=== PATIENT | female | born 1970 | race Caucasian/White ===

== ENCOUNTER 2017-06-07 16:19 | Emergency (ER) | payer OTHER ==
[2017-06-07 16:29] VITALS: TEMP 97.7
--- NOTE | 2017-06-07 16:56 | EDPHY ---
H & P Stated Complaint: lifting patient pulled back Source: Patient Exam Limitations: No limitations - Personal History LMP (Females 10-55): Post Menopausal Current Tetanus/Diphtheria Vaccine: Unsure - Medical/Surgical History Hx Asthma: No Hx Chronic Respiratory Disease: No Hx Diabetes: No Hx Cardiac Disease: No Hx Renal Disease: No Hx Cirrhosis: No Hx Alcoholism: No Hx HIV/AIDS: No Hx Splenectomy or Spleen Trauma: No Other PMH: migraine/breast cancer - Social History Smoking Status: Never smoked Time Seen by Provider: 06/07/17 16:56 HPI/ROS: HPI: This is a 46-year-old female who presents with Chief Complaint: lifting patient pulled back Location: Mid and lower back Quality: Pain Duration: 1-3 hours Signs and Symptoms: No bleeding, + radiation from mid to lower back down right outer buttock, no numbness, no weakness, no tingling, no incontinence, no decreased range of motion, no dysuria Timing: Gradual onset Severity: Moderate to severe Context: Patient works as a nurse at [employer] and around 130 p.m. was assisting of fellow employee to lift obese patient. The patient was leaned up against the bed and balancing her stay self on her stump. Another nurse was there trying to lift the obese patient onto the bed and prevent her from falling. Unfortunately, patient bent over and lifted quite a considerable amount of weight up onto the bed. She had gradual onset of mid bandlike across the thoracic region aching pain that over the past 1-3 hours has radiates down into the right lower back, right hip, and right leg. Denies incontinence, numbness, tingling, dysuria. She has a history of cervical degenerative disc disease as well as thoracic outlet syndrome. Modifying Factors: Took ibuprofen approximately 2 hours prior to arrival Comment: ROS: Constitutional: No fever, no chills, no weight loss Eyes: No blurred vision Respiratory: No shortness of breath, no cough Cardiovascular: No chest pain Gastrointestinal: No nausea, no vomiting no diarrhea Genitourinary: No dysuria Extremities: No myalgias Neurologic: No weakness, no numbness Skin: No rashes Hematologic: No bruising, no bleeding MEDICAL/SURGICAL/SOCIAL HISTORY: Medical history: migraine/breast cancer Surgical history: Bone graft and clavicle repair as a child Social history: Employee of [employer] CONSTITUTIONAL: Well-developed well-nourished pleasant adult white female, awake and alert, no obvious distress HEENT: Atraumatic and normocephalic, PERRL, EOMI. Tympanic membranes clear. Oropharynx clear, no exudate and moist pink mucosa. Airway patent. No lymphadenopathy. No meningismus. Cardiovascular: Normal S1/S2, regular rate, regular rhythm, without murmur rub or gallop. PULMONARY/CHEST: Symmetrical and nontender. Clear to auscultation bilaterally. Good air movement. No accessory muscle usage. ABDOMEN: Soft, nondistended, nontender, no rebound, no guarding, no peritoneal signs, no masses or organomegaly. No CVAT. EXTREMITIES: 2/2 pulses, no deformities, no clubbing, no cyanosis or edema. BACK: Mild reproducible bilateral paraspinous muscle tenderness in the thoracic and lumbar regions. No paraspinous spasms appreciated. No midline tenderness/deformity. Mild pain with right straight leg raise. Flexion/ extension/rotation intact with mild discomfort noted. Able to walk on heels and toes without difficulty. Light touch sensation intact. Bilateral hips have full range of motion and no greater trochanteric reproducible tenderness. NEUROLOGICAL: no focal neuro deficits. GCS 15. SKIN: Warm and dry, no erythema. no rash. Good capillary refill. (Cait Cruz) Constitutional: Initial Vital Signs Temperature (C) 36.5 C 06/07/17 16:26 Heart Rate 75 06/07/17 16:26 Respiratory Rate 16 06/07/17 16:26 Blood Pressure 143/90 H 06/07/17 16:26 O2 Sat (%) 96 06/07/17 16:26 O2 Delivery Mode Room Air Allergies/Adverse Reactions: Penicillins Allergy (Unknown, Verified 07/23/12 07:39) Hives Sulfa (Sulfonamide Antibiotics) [Sulfa(Sulfonamide Antibiotics)] Allergy ( Unknown, Verified 07/23/12 07:39) Rash sumatriptan [From Imitrex] Allergy (Verified 09/03/12 13:57) sumatriptan succinate [From Imitrex] Allergy (Verified 09/03/12 13:57) BANDAIDS/TAPE Allergy (Severe, Uncoded 09/09/12 15:59) SKIN IRRITATION/PEELS SKIN OFF Home Medications: Medication Instructions Recorded Cholecalciferol Vit D3 [Vitamin D3 4,000 units PO DAILY 09/03/12 2000 units (OTC)] Eletriptan HBr [Relpax] 20 mg PO PRN PRN 09/03/12 Rizatriptan Benzoate [Maxalt] 5 mg PO PRN PRN 09/03/12 Vitamin B Complex [Vitamin B 1 each PO DAILY 09/03/12 Complex (OTC)] Cyclobenzaprine [Flexeril 10 MG 10 mg PO TID PRN #15 tab 06/07/17 (*)] methylPREDNISolone [Medrol Dose 1 each PO AD #0 ea 06/07/17 Edd] Medical Decision Making - Diagnostics Imaging Results: Imaging Impressions Lumbar Spine X-Ray 06/07/17 17:10 Impression: Negative lumbar spine radiographs. Thoracic Spine X-Ray 06/07/17 17:10 Impression: 1. Mild thoracic levoscoliosis. No fracture or subluxation. 2. Multilevel cervical degenerative disk disease. ED Course/Re-evaluation: Thoracic x-ray, lumbar spinal x-ray, IV medications ordered Patient given IV Decadron, IV Valium, IV Toradol with moderate relief of pain Advised rice therapy, proper lifting techniques. If symptoms persist over the next week or worsen; patient is to follow up for MRI of her spine outpatient. Thoracic and lumbar x-rays reviewed via PACs shows no significant fracture/ degenerative disc disease in thoracic/lumbar areas. Cervical degenerative disc disease incidentally noted. Does show large amount of stool. No signs of neurovascular compromise/tenting of skin/compartment syndrome/ extremities and joints examined above and below area of concern and are neurovascularly intact. Ambulatory without difficulty at discharge. (Cait Cruz) The patient was evaluated and managed by the physician finance assistant. I have reviewed this chart and I agree with the findings and plan of care as documented , as indicated by my signature. I am the secondary supervising physician. ( Erin Huertas) Differential Diagnosis: Back pain including but not limited to muscular pain, herniated disc, spine fracture, intra-abdominal causes and urinary tract infection. (Cait Cruz) - Data Points Laboratory Results: 06/07/17 17:00 Beta HCG, Qual NEGATIVE Medications Given: Discontinued Medications Dexamethasone (Decadron Injection) 8 mg IVP EDNOW ONE Stop: 06/07/17 17:11 Last Admin: 10/01/17 17:32 Dose: 8 mg Diazepam (Valium Injection) 5 mg IVP EDNOW ONE Stop: 06/07/17 17:11 Last Admin: 06/07/17 17:32 Dose: 5 mg Ketorolac Tromethamine (Toradol) 15 mg IVP EDNOW ONE Stop: 06/07/17 17:12 Last Admin: 06/07/17 17:31 Dose: 15 mg Departure - Departure Disposition: Home, Routine, Self-Care Clinical Impression: Radiculopathy of leg Strain of thoracic region Qualifiers: Encounter type: initial encounter Qualified Code(s): S29.019A - Strain of muscle and tendon of unspecified wall of thorax, initial encounter Lumbar strain Qualifiers: Encounter type: initial encounter Qualified Code(s): S39.012A - Strain of muscle, fascia and tendon of lower back, initial encounter Condition: Good Instructions: Low Back Strain (ED), Thoracic Back Strain (ED) Additional Instructions: Rest as much as possible in the next few days. Avoid any heavy lifting/bending/twisting motions until pain resolves. Take ibuprofen 600-800 mg every 6-8 hours with food as needed for pain and inflammation. You may use muscle relaxers as needed for spasm. Please complete Medrol Dosepak as directed. Follow up with PCP/Neurosurgery in 5-7 days if symptoms persist or worsen at which time they will evaluate and recommend with you if MRI is needed. The x-rays obtained in the emergency department today demonstrate no evidence of an obvious fracture. Sometimes fractures are not obvious on the initial set of x-rays performed in the ED. For this reason, you should have repeat x-rays performed in 7-10 days if you are having any pain exclude the possibility of an occult fracture. Referrals: DANNI BERGERON [Other] - As per Instructions Julio Olivera MD [Medical Doctor] - As per Instructions Prescriptions: Cyclobenzaprine [Flexeril 10 MG (*)] 10 mg PO TID PRN #15 tab PRN Reason: Spasms methylPREDNISolone [Medrol Dose Edd] 1 each PO AD #0 ea
[2017-06-07] MEDS ORDERED: DIAZEPAM 10 MG/2 ML SYR IVP ONE (17:10)
[2017-06-07] MEDS ORDERED: DEXAMETHASONE 4 MG/ML VIAL IVP ONE (17:10)
[2017-06-07] MEDS ORDERED: KETOROLAC 15 MG/1 ML SDV IVP ONE (17:11)
[2017-06-07 19:25] VITALS: BP 159/88; PULSE 87; RESP 18; O2SAT 99
== END 2017-06-07 19:21 | disposition home or self-care (01) ==
DX: S39.012A Strain of muscle, fascia and tendon of lower back, initial encounter (principal); S29.019A Strain of muscle and tendon of unspecified wall of thorax, initial encounter; M54.10 Radiculopathy, site unspecified; Z85.3 Personal history of malignant neoplasm of breast; X50.0XXA Overexertion from strenuous movement or load, initial encounter; Y92.69 Other specified industrial and construction area as the place of occurrence of the external cause; Y99.0 Civilian activity done for income or pay; Y93.89 Activity, other specified
CPT/HCPCS: 96374; J1100; J1885